=== PATIENT | male | born 1970 | race African-American/Black ===

== ENCOUNTER 2020-06-04 17:44 | Emergency (ER) | payer OTHER, MEDICAID ==
[~2020-06-04] VITALS: Ht 170.2 cm; Wt 74.8 kg
[2020-06-04 17:48] VITALS: BP 147/106
[2020-06-04] MEDS ORDERED: XARELTO20 MG PO (17:52)
[2020-06-04] MEDS ORDERED: NORVASC 2.5 MG2.5 M1 PO (17:53)
[2020-06-04] MEDS ORDERED: METOPROLOL SUCC50 MG PO (17:53)
[2020-06-04] MEDS ORDERED: CHILDREN'S ASPI81 MG PO (17:54)
[2020-06-04 18:17] LABS: ABSOLUTE BASOPHILS 0.1 thou/uL (0.0-0.2); ABSOLUTE EOSINOPHILS 0.1 thou/uL (0.0-0.7); ABSOLUTE LYMPHOCYTES 2.4 thou/uL (0.8-5.3); ABSOLUTE NEUTROPHILS 7.9 thou/uL (1.6-8.1); BASOPHILS 0.7 %; EOSINOPHILS 0.5 %; HEMATOCRIT 41.5 % (42.0-52.0); MCH 23.2 pg (26.0-34.0); MCHC 31.3 g/dL (28.0-37.0); MCV 73.9 fL (80.0-100.0); MPV 6.7 fl. (7.2-11.1); NUCLEATED RBCS 0 /100WBC; PLATELET COUNT* 374 thou/uL (150-400); POLYS 68.8 %; RBC 5.61 mil/uL (4.50-6.00); RDW-CV 20.9 % (10.5-14.5); WBC 11.5 thou/uL (4.0-11.0)
[2020-06-04 18:30] LABS: APTT 29.1 Seconds (25.0-31.3); PROTIME 11.1 Seconds (9.20-11.50)
[2020-06-04 18:43] LABS: CALCIUM 9.4 mg/dL (8.5-10.1); CREATININE 1.2 mg/dL (0.6-1.3); POTASSIUM 3.2 mmol/L (3.5-5.1)
[2020-06-04 18:47] LABS: ALBUMIN 3.6 g/dL (3.4-5.0); MAGNESIUM 2.4 mg/dL (1.8-2.4); TOTAL BILIRUBIN 0.6 mg/dL (<0.1-1.0)
[2020-06-04 19:27] LABS: TARGET CELLS 1+
[2020-06-04 19:28] LABS: ANISOCYTOSIS 2+; HYPOCHROMASIA 1+; MICROCYTES 1+; PLATELET ESTIMATE ADEQUATE
[2020-06-04 19:30] LABS: OVALOCYTES Occasional
[2020-06-04] MEDS ORDERED: HYDROCODON-ACE1 EAC8 PO (20:09)
[2020-06-04] MEDS ORDERED: BENTYL 20 MG TA20 M1 PO (20:09)
[2020-06-04] MEDS ORDERED: ZOFRAN ODT4 MG PO (20:09)
--- NOTE | 2020-06-05 09:06 | EKG ---
[place] [address] ELECTROCARDIOGRAM REPORT Name: NICHOLAS KELLEY Room: [facility]#: [id number] Admission: 06/04/20 Attend Phys: Discharge: 06/04/20 Date of : 70 Date of Service: 06/04/201817 Report #: [id number] THIS REPORT FOR: //name// [facility] ED Test Date: 2020-06-04 Test Time: 18:18:37 Pat Name: NICHOLAS KELLEY Department: Room: Gender: Staff Development Coordinator: : 1970 Requested By: Flora Hines Order Number: [id number] MD: Mateus Hager Measurements Intervals [place] Rate: 101 P: 65 MA: 136 QRS: 17 QRSD: 83 T: 73 QT: 349 QTc: 453 Interpretive Statements Sinus tachycardia RSR' in V1 or V2, probably normal variant Borderline T wave abnormalities No previous ECG available for comparison Electronically Signed On 06-05-2020 9:05:49 NET [employer] by Mateus Hager [email or web address] <ELECTRONICALLY SIGNED> By: Mateus Hager MD, FAC 06/05/20 0905 1818 17 Mateus Hager MD, [facility] /EPI
== END 2020-06-04 20:24 | disposition home or self-care (01) ==
LOC: M.ERS 17:44
PROVIDERS: Physician Assistant
DX: R11.2 Nausea with vomiting, unspecified (principal); R19.7 Diarrhea, unspecified; R10.84 Generalized abdominal pain; Z20.828 Contact with and (suspected) exposure to other viral communicable diseases; Z86.73 Personal history of transient ischemic attack (TIA), and cerebral infarction without residual deficits; Z88.8 Allergy status to other drugs, medicaments and biological substances